=== PATIENT | male | born 1990 | race Caucasian/White ===

== ENCOUNTER 2020-07-16 19:57 | Emergency (ER) | payer MEDICAID, OTHER ==
--- NOTE | 2020-07-16 20:43 | EDM.PDOC ---
ED HPI GENERAL MEDICAL PROBLEM - General Chief Complaint: Skin Complaint Stated Complaint: SKIN INFECTION Time Seen by Provider: 07/16/20 20:52 Source of Information: Reports: Patient History Limitations: Reports: No Limitations - History of Present Illness INITIAL COMMENTS - FREE TEXT/NARRATIVE: pt arrived with a swollen small finger tender but is draining. Most of swelling is at the mid pp joint. This has been swollen for 3 weeks. I did offer a xray of the finger to rule out osteo but the pt refused. He will follow up at [place]. Onset: Gradual, Other ( 3 weeks of swelling. ) Duration: Hour(s): Location: Reports: Upper Extremity, Left Associated Symptoms: Reports: No Other Symptoms Treatments COOK SHIP: Reports: Dressing(s) Left Hand Pain Score (Numeric/FACES): 5 - Related Data Allergies Allergy/AdvReac Type Severity Reaction Status Date / Time amoxicillin AdvReac Rash Verified 07/16/20 20:32 Home Meds: Home Meds NK [No Known Home Meds] 07/16/20 [History] Past Medical History Dermatologic History: Reports: Cellulitis - Infectious Disease History Infectious Disease History: Reports: Chicken Pox, Pertussis (Whooping Cough) - Past Surgical History Head Surgeries/Procedures: Reports: None Dermatological Surgical History: Reports: None Social & Family History - Tobacco Use Smoking Status *Q: Never Smoker Second Hand Smoke Exposure: No - Caffeine Use Caffeine Use: Reports: None - Recreational Drug Use Recreational Drug Use: No ED ROS GENERAL - Review of Systems Review Of Systems: See Below Constitutional: Reports: No Symptoms HEENT: Reports: No Symptoms Respiratory: Reports: No Symptoms Cardiovascular: Reports: No Symptoms Endocrine: Reports: No Symptoms GI/Abdominal: Reports: No Symptoms Musculoskeletal: Reports: Other ( swelling of the small finger on the left at the proximal pp joint. ) Skin: Reports: No Symptoms Neurological: Reports: No Symptoms Psychiatric: Reports: No Symptoms ED EXAM, SKIN/RASH Exam: See Below Text/Narrative:: pt arrived with swelling at the proximal pp joint with tenderness and drainage. General Appearance: Alert, Mild Distress Extremities: Other (pt has swelling of the proximal pp joint, This is tender. There is some drainage present. Pt did refuse an xray to look for osteo. ) Neurological: Alert, Oriented Course - Vital Signs Last Recorded V/S: Last Vital Signs Temp 35.7 C L 07/16/20 20:31 Pulse 74 07/16/20 20:31 Resp 16 07/16/20 20:31 BP 141/85 H 07/16/20 20:31 Pulse Ox 96 07/16/20 20:31 - Orders/Labs/Meds Meds: Medications Discontinued Medications Generic Name Dose Route Start Last Admin Trade Name Gregorio PRN Reason Stop Dose Admin Bacitracin 1 dose 07/16/20 20:45 Bacitracin Oint 1 Gm TOP 07/16/20 20:46 ONETIME ONE Departure - Departure Time of Disposition: 20:43 Disposition: Home, Self-Care 01 Condition: Fair Clinical Impression: Finger infection, History of MRSA infection - Discharge Information Instructions: Fingertip Infection Referrals: PCP,None [Primary Care Provider] - Forms: ED Department Discharge Care Plan Goals: soak the finger in soapy solution bid, apply bacatracin, clindomycin 300mg tid, -- for 10 days, Pt did not wish to have an xray tonight. If swelling is persistent he needs to reevaluate to be sure the bone is not involved. While on the clindomycin pt needs to eat alot of yogurt and use probiotic. Sepsis Event Note (ED) - Evaluation Sepsis Screening Result: No Definite Risk - Focused Exam Vital Signs: Vital Signs Temp Pulse Resp BP Pulse Ox 07/16/20 20:31 35.7 C L 74 16 141/85 H 96 07/16/20 20:28 35.7 C L 74 16 141/85 H 96
[2020-07-16] MEDS ORDERED: Bacitracin Oint 1 GM U/D Packet TOP ONE (20:45)
== END 2020-07-16 21:00 | disposition home or self-care (01) ==
LOC: JP.ED 19:57
DX: L08.9 Local infection of the skin and subcutaneous tissue, unspecified (principal); Z86.14 Personal history of Methicillin resistant Staphylococcus aureus infection; Z88.0 Allergy status to penicillin
CPT/HCPCS: 99283